=== PATIENT | female | born 1980 | race Caucasian/White ===

== ENCOUNTER → 2017-10-15 | Outpatient (CLI) | payer OTHER | LOC: M LRY 15:10 | DX: M25.561 Pain in right knee (principal); M25.469 Effusion, unspecified knee | CPT/HCPCS: G0463 ==

== ENCOUNTER → 2018-06-05 | Outpatient (CLI) | payer OTHER ==
--- NOTE | 2018-06-05 11:26 | REP ---
Right foot for V : There is no fracture or dislocation. Mineralization and joint spaces are normal. There are no calcifications or foreign bodies. Impression: Negative Right foot . Electronically Signed by Vinh Gonzales MD 06/05/2018 11:17 A
== END ==
LOC: M LRY 10:50
PROVIDERS: ATTEND Nurse Practitioner Family
DX: M79.671 Pain in right foot (principal)
CPT/HCPCS: 73630; G0463